=== PATIENT | male | born 1965 | race American Indian/Alaskan Native ===

== ENCOUNTER 2017-01-21 06:23 | Day surgery (SDC) | payer MEDICARE ==
[2017-01-21] MEDS ORDERED: ECOTRIN PO ONE (07:00)
[2017-01-21] MEDS ORDERED: NACL 0.9% 500 ML 500 ML IV SCH (07:00)
[2017-01-21 07:40] LABS: Eosinophils % (Auto) 5.3 % (0.0-4.3); Hematocrit 39.7 % (35.5-45.6); Hemoglobin 13.5 gm/dl (11.8-15.2); Mean Corpuscular HGB Conc 34 % (32-34); Mean Corpuscular Hemoglobin 32 pg (28-32); Mean Corpuscular Volume 94 fl (84-94); Platelet Count 242 K/mm3 (140-440); Red Blood Count 4.23 M/mm3 (3.65-5.03); White Blood Count 4.9 K/mm3 (4.5-11.0)
[2017-01-21 07:50] LABS: Anion Gap 14 mmol/L; BUN/Creatinine Ratio 18.75; Blood Urea Nitrogen 15 mg/dL (9-20); Calcium 8.5 mg/dL (8.4-10.2); Carbon Dioxide 23 mmol/L (22-30); Chloride 103.6 mmol/L (98-107); Glucose 130 mg/dL (75-100); Potassium 3.9 mmol/L (3.6-5.0); Sodium 137 mmol/L (137-145)
[2017-01-21 07:57] LABS: INR 0.91 (0.87-1.13)
[2017-01-21] MEDS ORDERED: NITROGLYCERIN SYRINGE 3 ML ONE (08:15)
[2017-01-21] MEDS: XYLOCAINE 2% INFILTRATI ONE ×2 (08:26→08:36)
[2017-01-21] MEDS: SUBLIMAZE ONE ×2 (08:27→08:33)
[2017-01-21] MEDS: VERSED ONE ×2 (08:27→08:33)
[2017-01-21] MEDS: CALAN ONE ×2 (08:28→08:40)
[2017-01-21] MEDS: HEPARIN 10,000 UNITS/10 ML ONE ×2 (08:28→08:40)
[2017-01-21] MEDS: HEPARIN/NS 5000 UNIT/500ML(CATH LAB) 1,000 ML IR ONE ×2 (08:29→08:40)
--- NOTE | 2017-01-21 09:38 | Discharge Summary ---
Short Stay Discharge Plan Activity: advance as tolerated, other (POST CARDIAC CATH INSTRUCTIONS) Diet: low fat, low cholesterol, low salt Follow up with: KHRIS REEVES MD [Primary Care Provider] - 7 Days ALEXEY CAMPOS MD [Staff Physician] - 7 Days
--- NOTE | 2017-01-21 09:49 | Cardiac Catherization Report ---
HISTORY: The patient is a 51-year-old male who was referred to the office because of an abnormal EKG. He underwent a stress thallium study that demonstrated 2 ischemic zones and an EF of approximately 40%. Coronary angiography was recommended along with beta morenita therapy. Frequent PVCs and couplets were noted as well. PROCEDURE: Left heart catheterization, ventriculography, and coronary angiography via the right radial artery using 5-[place] Crissy catheters and a pigtail catheter. COMPLICATIONS: None. TISSUE SAMPLES: None. SEDATION: Intravenous Versed and fentanyl. PREPROCEDURE DIAGNOSES: Coronary artery disease and cardiomyopathy. POSTPROCEDURE DIAGNOSIS: Dilated cardiomyopathy, mild. HEMODYNAMICS: Central aortic pressure 108/71. Left ventricular pressure 110/26. ANGIOGRAPHIC RESULTS: 1. Left ventricle: The ventriculogram reveals a normal sized left ventricle with mild global dysfunction. The ejection fraction is 40-50%. 2. Right coronary artery: This is a dominant vessel and there are mild intimal irregularities. The vessels are quite large, consistent with ectasia. 3. Left coronary artery: Mild intimal irregularities. The vessels are quite large, consistent with ectasia. FINAL IMPRESSION: 1. Mild dilated cardiomyopathy with an ejection fraction of 40-50% associated with this are frequent PVCs and occasional couplets. There are no symptoms at this time. The patient will be placed on beta blockers. TAMANNA inhibitors will be considered at next visit. The blood pressure may not tolerate this. The patient will be cleared for knee surgery with moderate perioperative risk. 2. Ectatic coronary arteries with no significant lesions. PLAN: Office followup within 7 days, CAD risk factor modification, repeat echo in approximately 3 months. JOB# [id number] GIULIA/IMANI
[2017-01-21 11:20] VITALS: BP 146/97
== END 2017-01-21 11:45 | disposition home or self-care (01) ==
LOC: OPU 06:23
PROVIDERS: ATTEND Internal Medicine Cardiovascular Disease
DX: I42.0 Dilated cardiomyopathy (principal); M15.9 Polyosteoarthritis, unspecified; I10 Essential (primary) hypertension; Z79.01 Long term (current) use of anticoagulants
CPT/HCPCS: 36415; 80048; 85025; 85610; 85730; 93005; 93010; 93458; C1894; J1644; J2250; J3010; J7040; Q9967